=== PATIENT | female | born 1965 ===

== ENCOUNTER 2021-01-26 07:38 | Emergency (ER) | payer OTHER, SELFPAY ==
--- NOTE | 2021-01-26 | ECG_ITS ---
Test Reason : SYNCOPE Blood Pressure : / mmHG Vent. Rate : 048 BPM Atrial Rate : 048 BPM P-R Int : 202 ms QRS Dur : 086 ms QT Int : 442 ms P-R-T Axes : 069 045 038 degrees QTc Int : 394 ms Sinus bradycardia Otherwise normal ECG No previous ECGs available Referred By: Emily Flores Electronically Signed By:BEBE JORGENSEN
[2021-01-26 07:47] VITALS: BP 101/30; BP 80/50; PULSE 47; PULSE 55; RESP 14; TEMP 36.8; O2SAT 99; BMI 22.0
--- NOTE | 2021-01-26 07:47 | ECG_ITS ---
Test Reason : SYNCOPE Blood Pressure : / mmHG Vent. Rate : 051 BPM Atrial Rate : 051 BPM P-R Int : 192 ms QRS Dur : 080 ms QT Int : 438 ms P-R-T Axes : 047 031 040 degrees QTc Int : 403 ms Sinus bradycardia Otherwise normal ECG No previous ECGs available Referred By: Emily Flores Electronically Signed By:BEBE JORGENSEN
--- NOTE | 2021-01-26 07:48 | ED_ITS ---
HPI - Syncope General Chief Complaint: Syncope Stated Complaint: SYNCOPE,LOW BP Time Seen by Provider: 01/26/21 07:47 Source: patient, family and EMS Mode of arrival: EMS Limitations: no limitations History of Present Illness MD complaint: loss of consciousness, felt faint and collapsed Onset (ago): minute(s) -: minutes(s) Prodromal symptoms: vision changes, lightheaded and nausea/vomiting Witnessed: Yes - by Bystander Context: standing up (was counting celery) Injuries sustained associated with event: none Current symptoms: none and back to baseline History: previous syncopal episode (mother also had syncopal events without know n cause after extensive workup) Treatments prior to arrival: none Related Data Allergies Allergy/AdvReac Type Severity Reaction Status Date / Time No Known Allergies Allergy Verified 01/26/21 07:47 Review of Systems Review of Systems: Constitutional : No Weight loss, No Fever, No Chills ENT/Mouth : No sore throat, No Rhinorrhea Eyes: No Eye Pain, No Swelling, No Redness Cardiovascular : No Chest Pain, No SOB Respiratory : No Cough, No Sputum, No Wheezing Gastrointestinal : No Nausea, No Vomiting, No Diarrhea, No Constipation, No abdominal Pain, No Hematochezia, No Melena Genitourinary : No Dysuria, No Urinary Frequency, No Hematuria, Musculoskeletal : No joint pain, No Myalgias, No Joint Swelling Skin : No Skin Lesions, No rash Neuro : No Weakness, No Numbness, No Dizziness, No Headache, pos fainting Psych : No Anxiety/Panic, No Depression All other systems reviewed and are negative [facility] Past Medical History Attestation statement: The following information was validated with the patient. Medical History GERD (gastroesophageal reflux disease) Surgical History Hx of lumbar discectomy Social History Social History (Updated 01/26/21 @ 07:54 by Emily Flores DO) Alcohol intake: never Patient Tobacco Use Status: Never used Tobacco Use of substances other than those prescribed or required for medical reasons: No Advance Directives: Yes Advance Directives Information Provided: Yes Advance Directives on File: No Patient : No Physical Exam Vital Signs: Vital Signs: Last Vital Signs Temp 98.2 F 01/26/21 07:47 Pulse 61 06/17/21 08:53 Resp 14 01/26/21 07:47 BP 113/60 01/26/21 08:53 Pulse Ox 99 01/26/21 07:47 Body Mass Index 22.0 Appearance: Alert. Oriented X3. No acute distress. Eyes: Pupils equal, round and reactive to light. ENT: Pharynx normal. Neck: Normal inspection. Neck supple. CVS: Normal heart rate and rhythm. Pulses normal. Respiratory: No respiratory distress. Breath sounds normal. Abdomen: Soft and non-tender. Skin: Skin warm and dry. pale skin color. Normal skin turgor. Extremities: No lower extremity edema. No calf ttp Neuro: Oriented X 3. No motor deficit. No sensory deficit. Course Course Course Narrative: HR up to 60s on monitor BP improved, 2L of fluids ordered, at this time steady gait, negative ortho VS - can be DC home HR 50s to 60s - BP stable, no symptoms, wants to go home, given precautions to return MDM - Syncope MDM Narrative Medical decision making narrative: 55 yo female with hx of GERD and back surgeries reports witnessed syncopal episode - had prodrome was counting celery prior to episode, was able to sit herself down - + LOC no seizure activity, no trauma, 1 prior episode related to GI illness, had no CP/SOB to suggest PE/ACS and the patient denies GIB symptoms, of note her mother had years of syncopal episodes without known cause, will need EKG, ortho VS, labs, observation, HR is in 40s but she is very athletic and healthy and her BP is stable Lab Data Result diagrams: 01/26/21 08:11 01/26/21 08:11 Labs: Lab Results 01/26/21 01/26/21 01/26/21 Range/Units 07:50 08:11 08:11 WBC 6.3 (4.8-10.8) X10*3/uL RBC 3.65 L (4.20-5.50) X10*6/uL Hgb 11.3 L (12.0-16.0) g/dl Hct 34.5 L (37-47) % MCV 94.5 (80-98) fL MCH 31.0 (27.0-33.0) pg MCHC 32.8 (31.0-35.0) g/dl RDW 13.6 (11.0-16.0) % Plt Count 149 L (160-400) X10*3/uL MPV 9.5 (9.4-12.3) fL Immature Gran % (Auto) 0.3 (0.0-0.4) % Neut % (Auto) 68.2 (45-73) % Lymph % (Auto) 24.5 (20-40) % [place] % (Auto) 5.1 (2-11) % Eos % (Auto) 1.4 (0-4) % Baso % (Auto) 0.5 (0-2) % Lymph # (Auto) 1.5 (1.2-4.9) X10*3/uL [place] # (Auto) 0.3 (0.1-1.2) X10*3/uL Eos # (Auto) 0.1 (0.0-0.4) X10*3/uL Baso # (Auto) 0.0 (0.0-0.2) X10*3/uL Abs Immat Gran (auto) 0.02 (0.00-0.03) X10*3/uL Absolute Neuts (auto) 4.3 (2.0-8.3) X10*3/uL Absolute Nucleated RBC 0.000 (0.0-0.012) X10*3/uL Nucleated RBC % (auto) 0.0 (0.0-0.2) /100WBC Sodium 142 (135-145) mmol/L Potassium 5.1 (3.3-5.1) mmol/L Chloride 112 H (96-108) mmol/L Carbon Dioxide 23 (22-29) mmol/L Anion Gap 12 (12-20) BUN 22 H (9-16) mg/dL Creatinine 0.94 (0.5-1.4) mg/dL Estim Creat Clear Calc 66.6 Estimated GFR > 60 POC Glucose 71 (60-115) mg/dL Random Glucose 105 (60-115) mg/dL Calcium 8.0 L (8.4-10.2) mg/dL Magnesium 1.8 (1.6-2.6) mg/dL Total Bilirubin 0.4 (0.0-1.0) mg/dL Direct Bilirubin < 0.2 (0.0-0.5) mg/dL AST 18 (5-31) U/L ALT 16 (0-31) U/L Alkaline Phosphatase 52 (39-117) U/L Total Protein 5.2 L (6.5-8.0) g/dL Albumin 3.4 L (3.5-5.0) g/dL ECG Data Attestation: I personally reviewed and interpreted this ECG as follows: ECG interpretation date: 01/26/21 ECG interpretation time: 07:49 Interpretation: Rate: 48 Rhythm: sinus bradycardia with 1st degree AVB [place]: normal Normal P waves. 1st degree DAHLIA. Normal QRS complex. ST T wave : normal no MELIDA qTC: normal prior studies: no acute ischemia The study has been interpreted contemporaneously by me. EKG #2 Rate: 51 Rhythm: sinus bradycardia [place]: normal Normal P waves. Normal DAHLIA. Normal QRS complex. ST T wave : normal no MELIDA qTC: normal prior studies: no ischemia The study has been interpreted contemporaneously by me. . Discharge Plan Discharge Clinical Impression: Vasovagal syncope, Acute dehydration Patient Disposition: Home, Self-Care Instructions: Dehydration (ED), Syncope (ED) Additional Instructions: return to ED for any worsening symptoms or concerns STAY WITH RESPONSIBLE ADULT TODAY DRINK PLENTY OF FLUIDS, INCREASE SALT INTAKE WELL Referrals: Nyla Benítez MD [Primary Care Provider] - 2 days (check up) Stand Alone Forms: Work/School Release
[2021-01-26 07:55] LABS: Glucose, Whole Blood 71 mg/dL (60-115)
[2021-01-26] MEDS: 0.9 % Sodium Chloride 1,000 ML 999 ML IVCONT ×2 (07:57→08:41)
[2021-01-26 08:15] LABS: MANUAL DIFF FLAG NO
[2021-01-26 08:16] LABS: Basophils Percent Auto 0.5 % (0-2); Eosinophils Absolute Auto 0.1 X10*3/uL (0.0-0.4); Eosinophils Percent Auto 1.4 % (0-4); Hematocrit 34.5 % (37-47); Hemoglobin 11.3 g/dl (12.0-16.0); Imm Gran Abs Auto 0.02 X10*3/uL (0.00-0.03); Imm Gran Pct Auto 0.3 % (0.0-0.4); Lymphocytes Absolute Auto 1.5 X10*3/uL (1.2-4.9); Lymphocytes Percent Auto 24.5 % (20-40); Mean Corpuscular HGB Conc 32.8 g/dl (31.0-35.0); Mean Corpuscular Volume 94.5 fL (80-98); Mean Platelet Volume 9.5 fL (9.4-12.3); Monocytes Absolute Auto 0.3 X10*3/uL (0.1-1.2); Monocytes Percent Auto 5.1 % (2-11); Neutrophils Absolute Auto 4.3 X10*3/uL (2.0-8.3); Neutrophils Percent Auto 68.2 % (45-73); Platelet Count 149 X10*3/uL (160-400); Red Blood Count 3.65 X10*6/uL (4.20-5.50); Red Cell Distribution Width 13.6 % (11.0-16.0); White Blood Count 6.3 X10*3/uL (4.8-10.8)
[2021-01-26 08:43] LABS: Alanine Aminotransferase 16 U/L (0-31); Albumin Level 3.4 g/dL (3.5-5.0); Alkaline Phosphatase 52 U/L (39-117); Anion Gap 12 (12-20); Aspartate Amino Transferase 18 U/L (5-31); Bilirubin Direct < 0.2 mg/dL (0.0-0.5); Bilirubin Total 0.4 mg/dL (0.0-1.0); Blood Urea Nitrogen 22 mg/dL (9-16); Carbon Dioxide 23 mmol/L (22-29); Chloride 112 mmol/L (96-108); Creatinine Clr Calc Pharmacy 66.6; Estimated Glomerular Filt Rate > 60; Glucose Random 105 mg/dL (60-115); Magnesium 1.8 mg/dL (1.6-2.6); Potassium 5.1 mmol/L (3.3-5.1); Sodium 142 mmol/L (135-145); Total Protein 5.2 g/dL (6.5-8.0)
[2021-01-26 08:51] VITALS: BP 101/47; PULSE 54
[2021-01-26 08:52] VITALS: BP 109/67; PULSE 57
[2021-01-26 08:53] VITALS: BP 113/60; PULSE 61
== END 2021-01-26 09:33 | disposition home or self-care (01) ==
PROVIDERS: Emergency Provider Emergency Medicine; PCP Family Medicine
DX: E86.0 Dehydration (principal); R55 Syncope and collapse
CPT/HCPCS: 36415; 80048; 80076; 82947; 83735; 85025; 93005; 96360; 99284; 99285